=== PATIENT | female | born 1995 | race Caucasian/White ===

== ENCOUNTER 2018-04-29 11:08 | Emergency (ER) | payer MEDICAID ==
[2018-04-29] MEDS: ONDANSETRON (ODT) 4 MG TAB ODT (12:18)
[2018-04-29] MEDS: HYDROCODONE/APAP (5/325) TAB PO (12:18)
== END 2018-04-29 13:48 | disposition home or self-care (01) ==
LOC: FTE 11:08
DX: M25.511 Pain in right shoulder (principal)
CPT/HCPCS: 72100; 73000; 73030-RT; 81025; 99284-25